=== PATIENT | male | born 1965 | race Caucasian/White ===

== ENCOUNTER 2023-03-20 13:48 | Day surgery (SDC) | payer OTHER, SELFPAY ==
[2023-03-04 10:35] VITALS: BMI 47.2
[2023-03-20] VITALS (7 sets, daily range): BP systolic 128–146; BP diastolic 70–84; PULSE 74–105; RESP 11–20; TEMP 36.3–36.6; O2SAT 94–98; BMI 46.3
[2023-03-20] MEDS: LACTATED RINGERS 1,000 ML 42 ML IV (14:33)
--- NOTE | 2023-03-20 15:21 | PM.PREOP ---
Pre-operative Note Interval Note History & Physical reviewed/Exam performed by Physician: Yes Changes to H&P: No
[2023-03-20] MEDS: CLINDAMYCIN 900 MG in SODIUM CHLORIDE 0.9% 100 ML 106 MG IV (15:50)
--- NOTE | 2023-03-20 15:57 | P.HP_ITS ---
History of Present Illness History of Present Illness Date Patient Seen: 03/20/23 Time Patient Seen: 15:30 Chief complaint: Right Knee 03/20 Narrative: 57-year-old male medial meniscus tear and osteochondral lesion subchondral fracture or bone marrow edema with persistent symptoms has failed conservative treatment. Presents for arthroscopic surgery partial medial meniscectomy and osteochondral lesion debridement [facility] Medical History Arthritis Asthma COPD (chronic obstructive pulmonary disease) Diabetes mellitus DJD (degenerative joint disease) GERD (gastroesophageal reflux disease) Hidradenitis suppurativa Hypercholesteremia Hypertension Psoriasis Sleep apnea Surgical History History of orthopedic surgery Social History household members: spouse Smoking Status: Former smoker alcohol intake: current Meds Home Medications and Allergies Home Medications Medication Instructions Recorded Confirmed Type albuterol sulfate 90 mcg/actuation 1 puff inhalation PRN PRN 03/04/23 03/04/23 History aerosol inhaler Shortness Of Breath cyclobenzaprine 10 mg tablet 5 - 10 mg PO BID PRN muscle spasm 03/04/23 03/20/23 History dulaglutide 3 mg/0.5 mL 3 mg SUBCUT WEEKLY 03/04/23 03/20/23 History subcutaneous pen injector (Trulicity) lisinopril 20 mg tablet 20 mg PO DAILY 03/04/23 03/20/23 History metformin 500 mg tablet,extended 2,000 mg PO DAILY 03/04/23 03/20/23 History release 24 hr psyllium husk 0.4 gram capsule 0.4 g PO DAILY 03/04/23 03/20/23 History (Metamucil) rosuvastatin 10 mg tablet 10 mg PO DAILY 03/04/23 03/20/23 History Advair HFA 1 puff inhalation BID 03/20/23 03/20/23 History oxycodone 5 mg tablet 5 mg PO Q4H PRN pain #30 tabs 03/20/23 Rx Allergies Allergy/AdvReac Type Severity Reaction Status Date / Time aspirin Allergy Severe Anaphylaxis Verified 03/20/23 14:08 Penicillins Allergy Severe Anaphylaxis Verified 03/20/23 14:08 naproxen Allergy Unknown Dizziness Verified 03/20/23 14:08 Review of Systems Review of Systems ROS: Yes All systems reviewed with the patient and are negative except as otherwise documented Exam Vital Signs (past 8 hours): - 03/20/23 14:22 Temperature 97.8 F Pulse Rate 74 Respiratory Rate 20 Blood Pressure 129/77 Pulse Oximetry 96 Oxygen Delivery Method Room Air Oxygen Delivery Method Room Air Narrative Exam Narrative: Alert oriented no acute distress Heart regular rate and rhythm Lungs clear to auscultation Right knee tenderness to palpation medial joint line. Normal alignment. No erythema. No effusion. Positive Dave Assessment & Plan Assessment and plan (1) Medial meniscus tear: Status: Acute (2) Osteochondral lesion: Status: Acute Assessment & Plan narrative: Patient has a right medial meniscus tear and osteochondral lesion and subchondral fracture with bone edema. He is failed extensive conservative treatment with physical therapy injections and activity modifications. He has mechanical symptoms including catching locking sharp pain. We discussed options for treatment. He has been indicated for arthroscopic debridement partial medial meniscectomy and debridement of the osteochondral lesion possible microfracture. He is not a candidate for arthroplasty due to his BMI above 46 Time Spent With Patient Time with patient: less than 30 minutes Quality VTE Deep Vein Thrombosis/Pulmonary Embolism Present on Admission: No
[2023-03-20] MEDS: BUPIVACAINE 0.25% (PF) 30 ML, EPINEPHrine 0.15 MG INJ (16:41)
[2023-03-20] MEDS: fentaNYL 100 MCG/2 ML INJ IV (17:00)
[2023-03-20] MEDS: OXYCODONE/ACETAMINOPHEN 5/325 TABLET 1 TAB PO (17:21)
--- NOTE | 2023-03-20 18:08 | P.OP_ITS ---
Operative Date/Time/Diagnoses Date of procedure: 03/20/23 Time of procedure: 16:00 Pre-op diagnosis: Osteochondral defect femoral condyle Right knee arthritis Subchondral insufficiency fracture medial femoral condyle Morbid obesity BMI 46 Post-op diagnosis: same Procedure & Clinicians Procedure: Arthroscopy knee with microfracture CPT code 68625, right Knee arthroscopy with partial meniscectomy CPT code 05688, right Same procedure as scheduled: Yes Indications: The patient is a 57 year old male with right knee pain that has been refractory to conservative treatment. He is an osteochondral lesion proximally 1 x 0.5 cm on his medial femoral condyle and subchondral edema and a posterior meniscal tear. He is not had relief from non operative treatment including physical therapy, injections, activity modifications. He endorses mechanical symptoms including catching locking sharp pain. He was indicated for arthroscopic debridement including debridement of the osteochondral lesions and meniscus tear microfracture. The risks and benefits of the procedure have been discussed with the patient and given the opportunity to ask questions. The risks of surgery include but are not limited to infection, persistence of pain, damage to nerves and blood vessels, progressive arthritis, posttraumatic arthritis, DVT, PE, cardiopulmon ashlie complications and . The patient expressed a thorough understanding of the risks and benefits of surgery and has elected to proceed. Consent was signed. Surgeon: Antonia Kohler Click Yes if Unassisted: Yes Anesthesia Type: General and Local Operative Notes Findings: Suprapatellar pouch normal Patellofemoral compartment grade 2-3 chondromalacia Medial gutter normal Lateral gutter normal Notch normal ACL and partially visualized PCL Lateral compartment normal intact lateral meniscus Medial compartment with Medial femoral condyle osteochondral lesion focal grade 4 arthritis, grade 2 arthritis tibial plateau, posterior degenerative meniscal tear debrided to a stable base using the biters and shaver. Osteochondral lesion was debrided with shaver and microfracture. Closure Type: primary Specimen(s): none sent Prosthetic devices, grafts, tissues, transplants, or devices: None Estimated Blood Loss (mL): 1 Tourniquet time (min): 25 Procedure in detail: Patient was seen in the preoperative area the site of surgery was marked in informed consent confirmed. The patient was brought back to the operating room by the anesthesia team positioned in the supine position. General anesthetic was administered the patient was then prepped and draped in the standard sterile fashion for the right lower extremity. A nonsterile thigh tourniquet was placed. We used the lateral post and additional bump was taped to the bed as a foot rest. Once the right lower extremity prepped and draped in the standard sterile fashion the formal time-out procedure was performed confirming the patient's side and site of surgery and presence of informed consent. Esmarch was used for exsanguination and the tourniquet raised to 250 mmHg. Standard anterior lateral portal was established and the standard diagnostic arthroscopy procedure was carried out in the usual order with the findings listed above. Under direct visualization the anteromedial portal was created and the Cinthya inserted. The posterior medial meniscal tear was identified and debrided using the biters and Cinthya back to a stable base. There is a minimal chondroplasty of the patellofemoral joint and a chondroplasty of the medial femoral condyle which revealed the full-thickness osteochondral defect that was central weight-bearing femoral condyle. This was then micro fractured with the awl. There was some softening grade 2 chondromalacia of the tibial plateau. Once I was satisfied with the debridement the instruments removed remaining fluid was removed from the joint with suction and the sutures were placed at the portal sites. Knee was then injected with 15 cc of local anesthetic for postoperative pain control. The dressing was placed with Xeroform gauze ABD pad Webril and an Dusty wrap. The patient was woken from anesthesia taken to recovery unit in good condition there no immediate complications from this procedure. All counts were correct. Complications: none Post-operative Condition: stable Disposition: PACU Plan for aftercare: Weightbear as tolerated use crutches or walker as needed. Range of motion as tolerated. Follow-up in 2 weeks for wound check and suture removal. May take down dressings and shower in [address] Band-Aids over the sutures to keep them from catching on clothing. May use anti-inflammatories and Tylenol as well as pain medication. Use aspirin for DVT prophylaxis until full weight- bearing.
== END 2023-03-20 17:50 | disposition home or self-care (01) ==
PROVIDERS: PCP Internal Medicine; Referring Provider Internal Medicine; Visit Provider Orthopaedic Surgery Foot and Ankle Surgery
PROC: (CPT 29870; principal; 2023-03-20 15:45)
DX: M17.11 Unilateral primary osteoarthritis, right knee (principal); M21.861 Other specified acquired deformities of right lower leg; M22.41 Chondromalacia patellae, right knee; S83.241A Other tear of medial meniscus, current injury, right knee, initial encounter; M84.451A Pathological fracture, right femur, initial encounter for fracture; E66.01 Morbid (severe) obesity due to excess calories; E11.9 Type 2 diabetes mellitus without complications; M17.0 Bilateral primary osteoarthritis of knee; I10 Essential (primary) hypertension; J44.9 Chronic obstructive pulmonary disease, unspecified; G47.30 Sleep apnea, unspecified; Z68.42 Body mass index [BMI] 45.0-49.9, adult; Z87.891 Personal history of nicotine dependence; Z79.84 Long term (current) use of oral hypoglycemic drugs; Z79.85 Long-term (current) use of injectable non-insulin antidiabetic drugs
CPT/HCPCS: 29879; 29881; 82962; J0171; J0736; J1100; J2405; J2704; J3010